=== PATIENT | female | born 1960 | race Caucasian/White ===

== ENCOUNTER 2018-02-24 18:05 | Inpatient (IN) | payer OTHER ==
--- NOTE | 2018-02-24 18:34 | PDOC ---
Rapid Medical Evaluation Chief Complaint: Weakness Time Seen by Provider: 02/24/18 18:28 Medical Evaluation: Allergies Allergy/AdvReac Type Severity Reaction Status Date / Time No Known Allergies Allergy Verified 05/31/12 19:38 Vital Signs Temp Pulse Resp BP Pulse Ox 98.5 F 76 16 152/69 100 02/24/18 18:26 02/24/18 18:26 02/24/18 18:26 02/24/18 18:26 02/24/18 18:26 02/24/18 18:33 I have performed a brief in-person evaluation of this patient. The patient presents with a chief complaint of: h/o diabetes present with complains of 3 days h/o fatigue, weakness and fever. report she had similar symptoms over 2 weeks ago and seen in [facility] ER and dx with URI Pertinent physical exam findings: a&o X 3. NO DISTRESS I have ordered the following: UA, UCX, CBC, CMP The patient will proceed to the ED for further evaluation 02/24/18 18:49 02/24/18 18:50 Discharge Disposition - Diagnosis Malaise - Discharge Dispostion Condition at time of disposition: Stable - Referrals Referrals: Arvind Farooq MD [Primary Care Provider] - - Patient Instructions - Post Discharge Activity
--- NOTE | 2018-02-24 19:45 | PDOC ---
History of Present Illness - General History Source: Patient Exam Limitations: No Limitations - History of Present Illness Initial Comments: 02/24/18 19:39 The patient is a 57F with a PMH of HTN and DM who presents to the ER for weakness. The patient states that she's felt "weak" and "fatigued" for 2.5 weeks. She states that she went to another hospital and diagnosed with a bacterial infection and given antibiotics. Today, as she was on her first day back to work, she states that she felt weak, lightheaded, and near syncopal. She did not syncopize. She called her PCP, Dr. Arvind Farooq, who recommended she comes to the ER for evaluation. She denies CP, SOB, fever, nausea, vomiting, syncope, abdominal pain, dysuria, cough, congestion, sore throat. She admits to feeling weak and chills. <Sunny Hernandez - Last Filed: 02/24/18 21:41> <Julia Vergara - Last Filed: 02/24/18 21:51> - General Chief Complaint: Weakness Stated Complaint: Blood Sugar Problem Time Seen by Provider: 02/24/18 18:28 Past History - Past Medical History COPD: No Diabetes: Yes HTN: Yes - Surgical History Appendectomy: Yes Gastric Stapling: No Neurologic Surgery: No - Immunization History Immunization Up to Date: No - Suicide/Smoking/Psychosocial Hx Smoking Status: Yes Smoking History: Never smoked Have you smoked in the past 12 months: No Number of Cigarettes Smoked Daily: 15 Information on smoking cessation initiated: No 'Breaking Loose' booklet given: 06/01/12 Hx Alcohol Use: No Drug/Substance Use Hx: No Substance Use Type: None Hx Substance Use Treatment: No <Sunny Hernandez - Last Filed: 02/24/18 21:41> <Julia Vergara - Last Filed: 02/24/18 21:51> - Past Medical History Allergies/Adverse Reactions: Allergies Allergy/AdvReac Type Severity Reaction Status Date / Time Sulfa (Sulfonamide Allergy Verified 02/24/18 21:15 Antibiotics) Home Medications: Ambulatory Orders Lisinopril [Prinivil] 40 mg PO DAILY 05/30/12 Lovastatin 20 mg PO DAILY 05/30/12 Omeprazole [Prilosec (RX)] 40 mg PO DAILY 05/30/12 traZODone HCL [Desyrel] 100 mg PO HS 05/30/12 Alprazolam [Xanax] 0.25 mg PO TID 02/24/18 Gemfibrozil 600 mg PO BID 02/24/18 Sitagliptin Phos/Metformin HCl [Janumet 50-500 mg Tablet] 1 each PO BID Venlafaxine HCl ER [Effexor Xr -] 150 mg PO DAILY 02/24/18 Review of Systems - Review of Systems Able to Perform ROS?: Yes Comments:: 02/24/18 19:43 GENERAL/CONSTITUTIONAL: Positive for chills, fatigue, and weakness. No fever. HEAD, EYES, EARS, NOSE AND THROAT: No change in vision. No ear pain or discharge. No sore throat. CARDIOVASCULAR: No chest pain, palpitations, or lightheadedness. RESPIRATORY: No cough, wheezing, shortness of breath, or hemoptysis. GASTROINTESTINAL: No nausea, vomiting, diarrhea, constipation, or abdominal pain. GENITOURINARY: No dysuria, frequency, hematuria, or change in urination. MUSCULOSKELETAL: No joint or muscle swelling or pain. No neck or back pain. SKIN: No rash or lesions. NEUROLOGIC: No headache, numbness, tingling, focal weakness, loss of consciousness, or change in strength/sensation. Is the patient limited Bangladeshi proficient: No <Sunny Hernandez - Last Filed: 02/24/18 21:41> *Physical Exam - Vital Signs Last Vital Signs Temp Pulse Resp BP Pulse Ox 98.5 F 76 16 152/69 100 02/24/18 18:26 02/24/18 18:26 02/24/18 18:26 02/24/18 18:26 02/24/18 18:26 - Physical Exam Comments: 02/24/18 19:43 GENERAL: Well developed, well nourished. Awake and alert. No acute distress. HEENT: Normocephalic, atraumatic. Hearing grossly normal. Moist mucous membranes. PERRLA, EOMI. No conjunctival pallor. Sclera are non-icteric. NECK: Supple. Full ROM. No JVD. CARDIOVASCULAR: Regular rate and rhythm. No murmurs, rubs, or gallops. PULMONARY: No evidence of respiratory distress. Lungs clear to auscultation bilaterally. No wheezing, rales or rhonchi. ABDOMINAL: Soft. Non-tender. Non-distended. No rebound or guarding. GENITOURINARY: No CVA tenderness bilaterally. MUSCULOSKELETAL: Normal range of motion at all joints. No bony deformities or tenderness. EXTREMITIES: No cyanosis. No clubbing. No edema. No calf tenderness or swelling. SKIN: Warm and dry. Normal capillary refill. No rashes. No jaundice. NEUROLOGICAL: Alert, awake, appropriate. Cranial nerves 2-12 grossly intact. Normal speech. Gait is normal without ataxia. PSYCHIATRIC: Cooperative. Good eye contact. Appropriate mood and affect. <Sunny Hernandez - Last Filed: 02/24/18 21:41> - Vital Signs Last Vital Signs Temp Pulse Resp BP Pulse Ox 98.5 F 76 16 152/69 100 02/24/18 18:26 02/24/18 18:26 02/24/18 18:26 02/24/18 18:26 02/24/18 18:26 <Julia Vergara - Last Filed: 02/24/18 21:51> Moderate Sedation - Procedure Monitoring Vital Signs: Procedure Monitoring Vital Signs Temperature 98.5 F 02/24/18 18:26 Pulse Rate 76 02/24/18 18:26 Respiratory Rate 16 02/24/18 18:26 Blood Pressure 152/69 02/24/18 18:26 O2 Sat by Pulse Oximetry (%) 100 02/24/18 18:26 <Sunny Hernandez - Last Filed: 02/24/18 21:41> - Procedure Monitoring Vital Signs: Procedure Monitoring Vital Signs Temperature 98.5 F 02/24/18 18:26 Pulse Rate 76 02/24/18 18:26 Respiratory Rate 16 02/24/18 18:26 Blood Pressure 152/69 02/24/18 18:26 O2 Sat by Pulse Oximetry (%) 100 02/24/18 18:26 <Julia Vergara - Last Filed: 02/24/18 21:51> ED Treatment Course - LABORATORY CBC & Chemistry Diagram: 02/24/18 19:00 02/24/18 19:00 - RADIOLOGY Radiology Studies Ordered: Category Date Time Status CHEST PA & LAT [RAD] Stat Radiology 02/24/18 19:14 Ordered <Sunny Hernandez - Last Filed: 02/24/18 21:41> - LABORATORY CBC & Chemistry Diagram: 02/24/18 19:00 02/24/18 19:00 - ADDITIONAL ORDERS Additional order review: Laboratory Results 02/24/18 02/24/18 02/24/18 20:30 19:00 19:00 Sodium 136 Potassium 3.5 Chloride 105 Carbon Dioxide 21 Anion Gap 10 BUN 16 Creatinine 1.1 Creat Clearance w eGFR 51.57 Random Glucose 128 H Calcium 8.3 L Total Bilirubin 0.4 AST 8 L ALT 12 L Alkaline Phosphatase 80 Total Protein 6.7 Albumin 2.8 L Urine Color Urine Appearance Urine pH Ur Specific [place] Urine Protein Urine Glucose (UA) Urine Ketones Urine Blood Urine Nitrite Urine Bilirubin Urine Urobilinogen Ur Leukocyte Esterase Urine WBC (Auto) Urine RBC (Auto) Ur Epithelial Cells Stool Occult Blood Negative Acetone, Qual Negative L 02/24/18 18:51 Sodium Potassium Chloride Carbon Dioxide Anion Gap BUN Creatinine Creat Clearance w eGFR Random Glucose Calcium Total Bilirubin AST ALT Alkaline Phosphatase Total Protein Albumin Urine Color Yellow Urine Appearance Clear Urine pH 6.0 Ur Specific [place] 1.012 Urine Protein 2+ H Urine Glucose (UA) Negative Urine Ketones Negative Urine Blood 2+ H Urine Nitrite Negative Urine Bilirubin Negative Urine Urobilinogen Negative Ur Leukocyte Esterase 1+ H Urine WBC (Auto) 28 Urine RBC (Auto) 46 Ur Epithelial Cells Rare Stool Occult Blood Acetone, Qual 02/24/18 19:00 RBC 3.37 L MCV 86.2 MCHC 34.8 RDW 13.9 MPV 7.7 Neutrophils % 80.9 Lymphocytes % 8.2 D Monocytes % 9.7 D Eosinophils % 0.7 Basophils % 0.5 D - Medications Given in the ED: ED Medications Discontinued Medications Generic Name Dose Route Start Last Admin Trade Name Freq PRN Reason Stop Dose Admin Acetaminophen 1,000 mg 02/24/18 20:23 02/24/18 20:56 Ofirmev Injection - IVPB 02/24/18 20:24 1,000 mg ONCE ONE Administration Ceftriaxone Sodium 1,000 mg/ 50 mls @ 100 mls/hr 02/24/18 20:59 02/24/18 21: 19 Dextrose IVPB 02/24/18 21:28 100 mls/hr ONCE ONE Administration Sodium Chloride 1,000 ml 02/24/18 20:24 02/24/18 20:56 Normal Saline - IV 02/24/18 20:25 1,000 ml ONCE ONE Administration <Julia Vergara - Last Filed: 02/24/18 21:51> Medical Decision Making - Medical Decision Making 02/24/18 19:44 The patient is a 57F with a PMH of HTN and DM who presents to the ER with 2.5 weeks of weakness and chills. She is not comfortable appearing but has stable vitals. Will order CBC, CMP, EKG, CXR, and UA to look for sources of infection. Pt is afebrile. Pending labs and imaging. 02/24/18 21:03 Rectal temp 102. Giving fluids and tylenol for pt comfort. CBC indicates anemia. Stool occult sent. Concern for symptomatic anemia as pt had near syncopal episode, also in the setting of infection. UA indicates UTI. Giving ceftriaxone. 02/24/18 21:13 Stool occult negative. Microblogged for admission. 02/24/18 21:41 I have endorsed the patient to JONATHAN Vazquez for admission under Dr. Radford. <Sunny Hernandez - Last Filed: 02/24/18 21:41> *DC/Admit/Observation/Transfer - Discharge Dispostion Decision to Admit order: Yes <Sunny Hernandez - Last Filed: 02/24/18 21:41> - Discharge Dispostion Decision to Admit order: Yes Decision to Admit order Date/Time: 02/24/18 21:49 <Julia Vergara - Last Filed: 02/24/18 21:51> Diagnosis at time of Disposition: Malaise, Near syncope, Acute febrile illness UTI (urinary tract infection) Qualifiers: Urinary tract infection type: site unspecified Hematuria presence: with hematuria Qualified Code(s): N39.0 - Urinary tract infection, site not specified ; R31.9 - Hematuria, unspecified Anemia Qualifiers: Anemia type: unspecified type Qualified Code(s): D64.9 - Anemia, unspecified - Discharge Dispostion Condition at time of disposition: Guarded - Referrals Referrals: Arvind Farooq MD [Primary Care Provider] - - Patient Instructions - Post Discharge Activity
[2018-02-24 19:47] LABS: BASO % 0.5 % (0-2.0); EOS % 0.7 % (0-4.5); HEMATOCRIT 29.1 % (32.4-45.2); HEMOGLOBIN 10.1 GM/dL (10.7-15.3); LYMPH % 8.2 % (8-40); MCHC 34.8 g/dl (32.0-36.0); MEAN CELL VOLUME 86.2 fl (80-96); MEAN PLT VOLUME 7.7 fl (7.5-11.1); MONO % 9.7 % (3.8-10.2); NEUT % 80.9 % (42.8-82.8); PLATELET COUNT 313 K/MM3 (134-434); RBC 3.37 M/mm3 (3.60-5.2); RDW 13.9 % (11.6-15.6); WHITE BLOOD COUNT 11.3 K/mm3 (4.0-10.0)
[2018-02-24 20:10] LABS: URINE APPEARANCE CLEAR; URINE BILIRUBIN NEGATIVE (<2.0 mg/dL); URINE COLOR YELLOW; URINE GLUCOSE (UA) NEGATIVE (NEGATIVE); URINE KETONE NEGATIVE (NEGATIVE); URINE LEUK ESTERASE 1+ (NEGATIVE); URINE NITRITE NEGATIVE (NEGATIVE); URINE PROTEIN 2+ (NEGATIVE); URINE UROBILINOGEN NEGATIVE mg/dL (0.2-1.0)
[2018-02-24 20:13] LABS: ALBUMIN 2.8 g/dl (3.4-5.0); ALK PHOS 80 U/L (45-117); ANION GAP 10 MMOL/L (8-16); BILIRUBIN,TOTAL 0.4 mg/dL (0.2-1); BLOOD UREA NITROGEN 16 mg/dL (7-18); CALCIUM 8.3 mg/dL (8.5-10.1); CHLORIDE 105 mmol/L (98-107); CO2 21 mmol/L (21-32); CREATININE 1.1 mg/dL (0.55-1.3); GLUCOSE,RANDOM 128 mg/dL (74-106); POTASSIUM 3.5 mmol/L (3.5-5.1); SGOT/AST 8 U/L (15-37); SGPT/ALT 12 U/L (13-61); SODIUM 136 mmol/L (136-145); TOT PROT 6.7 g/dl (6.4-8.2)
[2018-02-24 20:15] LABS: EPI CELLS RARE /HPF (FEW)
[2018-02-24] MEDS ORDERED: ACETAMINOPHEN 1000 MG/100 ML VIAL (NON FORMULARY) IVPB ONE (20:23)
[2018-02-24] MEDS ORDERED: SODIUM CHLORIDE 0.9% 1000 ML INFUS.BAG IV ONE (20:24)
[2018-02-24] MEDS ORDERED: ACETAMINOPHEN INJECTION 100 ML IVPB ONE (20:48)
[2018-02-24] MEDS ORDERED: CEFTRIAXONE 1,000 MG in DEXTROSE 5%-WATER - 50 ML IVPB ONE (20:59)
--- NOTE | 2018-02-24 21:10 | PDOC ---
Attending Attestation - HPI HPI: 02/24/18 21:10 Patient is a 57 year old female with a significant past medical history of HTN and DM, who presents to the ED with complaints of malaise and generalized weakness and subjective chills that began x2 weeks ago. She reports feeling weak and fatigued for almost 3 weeks, stating she went to [facility] for evaluation earlier this month and was diagnosed with an upper respiratory infection, UTI? - finished course of antibiotics she does not recall. This morning she had episode of near syncope. prompting her to call her PCP Dr Farooq who then advised her to come into the ED for further evaluation. Denies chest pain, sob. Denies nausea, vomiting. Denies contact with sick individuals, out of state travelling. Denies constipation, diarrhea. Denies dysuria, hematuria. Denies any other symptoms. Allergies: None Social history: No smoking. No alcohol. No illicit drugs. Surgical history: None PMD: Dr. Arvind Farooq - Physicial Exam PE: 02/24/18 21:10 NAD, well appearing, MMM, Pale conjunctiva, anicteric; neck supple. lungs clear , RRR, abdomen soft nontender. No gross blood on rectal exam. POOL x4, no focal neuro deficits. No peripheral edema. normal color for ethnicity, WWP. <Brenton Cobos - Last Filed: 02/24/18 21:10> - Resident Resident Name: Sunny Hernandez - ED Attending Attestation I have performed the following: I have examined & evaluated the patient, The case was reviewed & discussed with the resident, I agree w/resident's findings & plan - Medical Decision Making 02/24/18 21:07 I, Julia Vergara MD, attest that this document has been prepared under my direction and personally reviewed by me in its entirety. I further attest, that it accurately reflects all work, treatment, procedures and medical decision -making performed by me. See HPI for details DDx weakness: dehydration, infection, delirium, UTI, pneumonia, viral syndrome, influenza, electrolyte/metabolic derangements, anemia, tick borne illness Vital signs reviewed, wnl. Prior notes reviewed, including admissions, discharges and consultations. laboratory results and imaging reviewed, basic labs and lytes notable for acute anemia, H/H dropped from normal limits down to 01/12. guaic negative for occult blood. last colonoscopy 5 years ago, normal UA_with WBC and leuk esterase, blood, correlating with UTI, treating with IV ceftriaxone CXR_clear, no infiltrate/edema, no acute pathology influenza test negative. acetones neg, so doubt DKA also with normal sugars. lactic normal, reassuring. Cardiac panel_negative EKG normal sinus rhythm, no interval abnormalities, narrow QRS, ST and T wave segments and morphology normal. Nonspecific T wave abnormalities ED course: IVF hydration, abx for UTI. also still FUO, blood cx and lactic sent. peripheral smear for babesia and lyme sent given in endemic region Dispo: Admit for near syncope, anemia and febrile illness and infectious/anemia workup. Discussed results and management plan with pt and family member at bedside, agree with impression and plan 02/25/18 00:01 <Julia Vergara - Last Filed: 02/25/18 00:02>
[2018-02-24] MEDS ORDERED: CEFTRIAXONE 1 GM/50 ML BAG ONE (21:12)
--- NOTE | 2018-02-24 23:09 | HP ---
Admitting History and Physical - Primary Care Physician PCP: Arvind Farooq - Admission Chief Complaint: Pre-Syncope, Weakness History of Present Illness: This is a 57y/o woman with a PMHx of HTN, HLD, DM. Who present to the ED with presyncope and r-arm weakness x today. Patient reports being treated at [facility] for a UTI on 02/05/18. She reports f/u with her PCP - UA neg. Patient reports returning to work today and began feeling like she was about to "pass out". Patient reports having an episode of diaphoresis, decreased appetite as well. Patient denies numbness, tingling, facial droop. Patient denies fever, cough, CP, AP, N/V/D, constipation. History Source: Patient Limitations to Obtaining History: No Limitations - Past Medical History Cardiovascular: Yes: HTN, Hyperlipdemia Renal/: Yes: UTI Reproductive: Yes: Postmenopausal ...LMP: 05/31/12 Psych: Yes: Anxiety - Past Surgical History Past Surgical History: Yes: Appendectomy, Colonoscopy, Hysterectomy - Smoking History Smoking history: Former smoker Have you smoked in the past 12 months: No Aproximately how many cigarettes per day: 15 If you are a former smoker, when did you quit?: 6 years ago - Alcohol/Substance Use Hx Alcohol Use: Yes (occasional) History of Substance Use: reports: None - Social History Usual Living Arrangement: Yes: With Spouse ADL: Independent Occupation: Employed at [employer], tool die maker History of Recent Travel: No Home Medications - Allergies Allergies/Adverse Reactions: Allergies Allergy/AdvReac Type Severity Reaction Status Date / Time Sulfa (Sulfonamide Allergy Verified 02/24/18 21:15 Antibiotics) - Home Medications Home Medications: Ambulatory Orders Lisinopril [Prinivil] 40 mg PO DAILY 05/30/12 Lovastatin 20 mg PO DAILY 05/30/12 Omeprazole [Prilosec (RX)] 40 mg PO DAILY 05/30/12 traZODone HCL [Desyrel] 100 mg PO HS 05/30/12 Alprazolam [Xanax] 0.25 mg PO TID 02/24/18 Gemfibrozil 600 mg PO BID 02/24/18 Venlafaxine HCl ER [Effexor Xr -] 150 mg PO DAILY 12/11/18 Sitagliptin Phos/Metformin HCl [Janumet 50-500 mg Tablet] 1 each PO BID Family Disease History - Family Disease History Family Disease History: Diabetes: Father (Lung, ), Heart Disease: Mother (HTN), CA: Father, Respiratory: Brother (PE, age- 50's) Review of Systems - Review of Systems Constitutional: reports: Diaphoresis, Fever, Loss of Appetite, Weakness Eyes: reports: No Symptoms HENT: reports: No Symptoms Neck: reports: No Symptoms Cardiovascular: reports: No Symptoms Respiratory: reports: No Symptoms Gastrointestinal: reports: No Symptoms Genitourinary: reports: Dysuria Breasts: reports: No Symptoms Reported Musculoskeletal: reports: No Symptoms Integumentary: reports: No Symptoms Neurological: reports: No Symptoms Endocrine: reports: No Symptoms Hematology/Lymphatic: reports: No Symptoms Psychiatric: reports: No Symptoms Physical Examination Vital Signs: Vital Signs Temperature 102 F H 02/24/18 20:00 Pulse Rate 76 02/24/18 18:26 Respiratory Rate 16 02/24/18 18:26 Blood Pressure 152/69 02/24/18 18:26 O2 Sat by Pulse Oximetry (%) 100 02/24/18 18:26 Constitutional: Yes: Well Nourished, No Distress, Calm, Pallor Eyes: Yes: WNL, Conjunctiva Clear (pale), EOM Intact, PERRL HENT: Yes: WNL, Atraumatic, Normocephalic Neck: Yes: WNL, Supple, Trachea Midline Cardiovascular: Yes: WNL, Regular Rate and Rhythm, S1, S2 Respiratory: Yes: WNL, Regular, CTA Bilaterally Gastrointestinal: Yes: WNL, Normal Bowel Sounds, Soft, Abdomen, Obese. No: Tenderness, Tenderness, Epigastrium, Tenderness, Rebound ...Rectal Exam: Yes: Guaiac Negative Renal/: Yes: Incontinence Breast(s): Yes: WNL Musculoskeletal: Yes: Back Pain Extremities: Yes: WNL Edema: No Peripheral Pulses WNL: Yes Integumentary: Yes: WNL Neurological: Yes: WNL, Alert, Oriented, Cran Nerves II-XII Intact ...Motor Strength: WNL Psychiatric: Yes: WNL, Alert Labs: CBC, BMP 02/24/18 19:00 02/24/18 19:00 Intake & Output 02/22/18 02/23/18 02/24/18 02/25/18 23:59 23:59 23:59 23:59 Weight 78.471 kg Current Medications Generic Name Dose Route Start Last Admin Trade Name Lili PRN Reason Stop Dose Admin Atorvastatin Calcium 10 mg 02/25/18 22:00 Lipitor - PO HS SOFÍA Gemfibrozil 600 mg 02/24/18 23:15 Lopid - PO BIDAC SOFÍA Lisinopril 40 mg 02/25/18 10:00 Prinivil PO DAILY SOFÍA Pantoprazole Sodium 40 mg 02/25/18 10:00 Protonix - PO DAILY SOFÍA Trazodone HCl 100 mg 02/24/18 23:30 Desyrel - PO HS SOFÍA Venlafaxine HCl 150 mg 02/25/18 10:00 Effexor Xr - PO DAILY SOFÍA Imaging - Results X-ray: Image Reviewed Problem List - Problems (1) Near syncope Assessment/Plan: Likely secondary to Arrhythmia vs UTI Continue cardiac monitoring Serial Enzymes EKG reviewed- SR with 1st degree AV block. Septal Infarct age undetermined Appreciate Cardiology consult Ceftriaxone given in ED, will continue UA- reviewed Fall Precautions Orthostatics Code(s): R55 - SYNCOPE AND COLLAPSE (2) UTI (urinary tract infection) Assessment/Plan: UA- +2 protein, +1 leukocyte esterase, +2 blood Urine Culture- pending Ceftriaxone given in ED, will continue WBC 28 +1 leukocyte esterase +2 protein +2 blood Monitor CBC Monitor vitals Code(s): N39.0 - URINARY TRACT INFECTION, SITE NOT SPECIFIED Qualifiers: Urinary tract infection type: site unspecified Hematuria presence: with hematuria Qualified Code(s): N39.0 - Urinary tract infection, site not specified; R31.9 - Hematuria, unspecified (3) HTN (hypertension) Assessment/Plan: stable Monitor BP Continue home meds Monitor renal function Code(s): I10 - ESSENTIAL (PRIMARY) HYPERTENSION (4) HLD (hyperlipidemia) Assessment/Plan: Stable Continue statin Monitor LFTs Code(s): E78.5 - HYPERLIPIDEMIA, UNSPECIFIED (5) Diabetes mellitus Assessment/Plan: stable BGMs ISS Will hold home meds Code(s): E11.9 - TYPE 2 DIABETES MELLITUS WITHOUT COMPLICATIONS Qualifiers: Diabetes mellitus type: type 2 Diabetes mellitus complication status: without complication (6) Malaise Assessment/Plan: Likely secondary to UTI Continue IVF Monitor BMP Vitals Code(s): R53.81 - OTHER MALAISE Assessment/Plan This is a 57 y/o woman placed in Tele Observation for Near Syncope, UTI for further evaluation of their emergent condition. Plan: FEN PO Fluids as tolerated Replete lytes prn Low Na Diet DVT ppx OOB SCDs Lovenox SQ Dispo: Requires Inpatient Care Visit type - Emergency Visit Emergency Visit: Yes ED Registration Date: 02/24/18 Care time: The patient presented to the Emergency Department on the above date and was hospitalized for further evaluation of their emergent condition. - New Patient This patient is new to me today: Yes Date on this admission: 02/24/18 - Critical Care Critical Care patient: No
[2018-02-25] MEDS: traZODone HCL 100 MG TABLET (FP) PO SCH ×2 (00:10→21:16)
[2018-02-25] MEDS: GEMFIBROZIL 600 MG TABLET (FP) PO SCH ×3 (00:10→17:47)
[2018-02-25 05:46] LABS: BASO % 0.4 % (0-2.0); EOS % 1.5 % (0-4.5); HEMATOCRIT 28.6 % (32.4-45.2); HEMOGLOBIN 9.5 GM/dL (10.7-15.3); LYMPH % 12.3 % (8-40); MCH 28.7 pg (25.7-33.7); MCHC 33.2 g/dl (32.0-36.0); MEAN CELL VOLUME 86.6 fl (80-96); MEAN PLT VOLUME 7.4 fl (7.5-11.1); MONO % 10.3 % (3.8-10.2); NEUT % 75.5 % (42.8-82.8); PLATELET COUNT 260 K/MM3 (134-434); RDW 13.9 % (11.6-15.6)
[2018-02-25 06:18] LABS: ANION GAP 9 MMOL/L (8-16); BLOOD UREA NITROGEN 14 mg/dL (7-18); CALCIUM 7.9 mg/dL (8.5-10.1); CHLORIDE 112 mmol/L (98-107); CHOLESTEROL 118 mg/dL (50-200); CO2 21 mmol/L (21-32); CREATININE 0.8 mg/dL (0.55-1.3); GLUCOSE,RANDOM 128 mg/dL (74-106); HDL CHOLESTEROL 30 mg/dL (40-60); MAGNESIUM 1.2 mg/dL (1.8-2.4); PHOSPHOROUS 2.2 mg/dL (2.5-4.9); POTASSIUM 3.7 mmol/L (3.5-5.1); SODIUM 142 mmol/L (136-145); TRIGLYCERIDES 119 mg/dL (0-150)
[2018-02-25] MEDS ORDERED: PT OWN MED DRAWER 7, Y5N ONE (08:41)
--- NOTE | 2018-02-25 09:51 | EKG ---
Test Reason : Blood Pressure : / mmHG Vent. Rate : 078 BPM Atrial Rate : 078 BPM P-R Int : 272 ms QRS Dur : 088 ms QT Int : 358 ms P-R-T Axes : 050 000 054 degrees QTc Int : 408 ms SINUS RHYTHM WITH 1ST DEGREE A-V BLOCK POSSIBLE LEFT ATRIAL ENLARGEMENT SEPTAL INFARCT , AGE UNDETERMINED ABNORMAL ECG WHEN COMPARED WITH ECG OF 01-JUN-2012 01:42, NO SIGNIFICANT CHANGE WAS FOUND Confirmed by MARIA E NGUYEN MD ([id number]) on 02/25/2018 9:50:42 AM Referred By: Confirmed By:MARIA E NGUYEN MD
[2018-02-25] MEDS: VENLAFAXINE HCL 75 MG E.R. CAPSULES (FP) PO SCH (10:03)
[2018-02-25] MEDS: PANTOPRAZOLE 40 MG TABLET (FP) PO SCH (10:03)
[2018-02-25] MEDS: LISINOPRIL 20 MG TABLET (FP) PO SCH (10:03)
--- NOTE | 2018-02-25 10:43 | PN ---
Progress Note, Physician - Current Medication List Current Medications: Active Medications Atorvastatin Calcium (Lipitor -) 10 mg PO [facility] Gemfibrozil (Lopid -) 600 mg PO BIDAC [facility] Last Admin: 02/25/18 08:47 Dose: 600 mg Lisinopril (Prinivil) 40 mg PO DAILY [facility] Last Admin: 02/25/18 10:03 Dose: 40 mg Pantoprazole Sodium (Protonix -) 40 mg PO DAILY [facility] Last Admin: 02/25/18 10:03 Dose: 40 mg Trazodone HCl (Desyrel -) 100 mg PO HS [facility] Last Admin: 02/25/18 00:10 Dose: 100 mg Venlafaxine HCl (Effexor Xr -) 150 mg PO DAILY [facility] Last Admin: 02/25/18 10:03 Dose: 150 mg - Objective Vital Signs: Vital Signs Temperature 98.6 F 02/25/18 08:55 Pulse Rate 68 02/25/18 08:55 Respiratory Rate 20 02/25/18 08:55 Blood Pressure 161/78 02/25/18 08:55 O2 Sat by Pulse Oximetry (%) 100 02/25/18 08:55 Labs: CBC, BMP 02/25/18 05:20 02/25/18 05:20
[2018-02-25] MEDS ORDERED: MAGNESIUM 1GM/D5W - 2 GM/200 ML IVPB IVPB ONE (10:53)
[2018-02-25] MEDS ORDERED: PATIENT'S OWN MEDICATION (NON-FORMULARY) (Sitagliptin Phos/Metformin Hcl [Janumet 50-500 M PO SCH (11:15)
[2018-02-25] MEDS: metFORMIN HCL 500 MG TABLET (FP) PO SCH ×2 (11:28→17:29)
[2018-02-25] MEDS: sitaGLIPtin PHOSPHATE 50 MG TABLET PO SCH ×2 (11:28→17:29)
[2018-02-25] MEDS ORDERED: MAGNESIUM SULF 50% (8.12 MEQ/2 ML-1 GM VIAL) IVPB ONE (11:30)
[2018-02-25] MEDS ORDERED: ALPRAZolam 0.25 MG TABLET ONE (11:31)
[2018-02-25] MEDS: ALPRAZolam 0.25 MG TABLET PO PRN ×2 (11:35→21:14)
--- NOTE | 2018-02-25 14:22 | ECHO ---
Name: VERNONSABINO Exam:Adult Echocardiogram Study Date: 02/25/2018 11:38 AM Age: 57 yrs Reason For Study: PRE SYNCOPE Height: 67 in Weight: 173 lb BSA: 1.9 m2 MMode/2D Measurements & Calculations IVSd: 0.89 cm Ao root diam: 2.9 cm LVIDd: 4.7 cm LA dimension: 4.8 cm LVIDs: 3.4 cm LVPWd: 0.88 cm EDV(Teich): 104.3 ml TAPSE: 2.3 cm ESV(Teich): 48.5 ml Doppler Measurements & Calculations Ao V2 max: 143.6 cm/sec LV V1 max P.2 mmHg Ao max P.2 mmHg LV V1 max: 102.7 cm/sec MR max shelton: 550.8 cm/sec TR max shelton: 260.4 cm/sec MR max P.9 mmHg TR max P.2 mmHg PI end-d shelton: 165.2 cm/sec Med Peak E' Shelton: 5.5 cm/sec Lat Peak E' Shelton: 9.7 cm/sec Procedure A two-dimensional transthoracic echocardiogram with color flow and Doppler was performed. Left Ventricle The left ventricular size, thickness and function are normal. The left ventricular ejection fraction is normal. The left ventricular wall motion is normal. Right Ventricle The right ventricle is normal in size and function. Atria The left atrium is moderately dilated. The right atrium is moderately dilated. The atrial septum is aneurysmal. Mitral Valve There is mild mitral valve thickening. There is no mitral valve stenosis. There is moderate to severe mitral regurgitation. Tricuspid Valve There is mild tricuspid valve thickening. There is no tricuspid stenosis. There is mild to moderate t ricuspid regurgitation. Right ventricular systolic pressure is elevated at 30-40mmHg. Aortic Valve The aortic valve is normal in structure and function. No hemodynamically significant valvular aortic stenosis. No aortic regurgitation is present. Pulmonic Valve The pulmonic valve is not well visualized. There is no pulmonic valvular stenosis. Mild pulmonic valv ular regurgitation. Great Vessels The aortic root is normal size. Pericardium/Pleura There is no pericardial effusion. Interpretation Summary The left atrium is moderately dilated. The right atrium is moderately dilated. The left ventricular size, thickness and function are normal The left ventricular ejection fraction is normal. The left ventricular wall motion is normal. There is mild to moderate tricuspid regurgitation. Right ventricular systolic pressure is elevated at 30-40mmHg. There is moderate to severe mitral regurgitation. The atrial septum is aneurysmal. MD Cosme Morales 02/25/2018 02:22 PM
[2018-02-25] MEDS: INSULIN SLIDING SCALE (NOVOLOG) 1 VIAL SQ SCH (17:29)
[2018-02-25] MEDS ORDERED: INSULIN (NOVOLOG) ASPART 100 UNITS/ML 10ML VIAL ONE (17:48)
[2018-02-25] MEDS ORDERED: traZODone HCL 50 MG TABLET (FP) ONE (21:12)
[2018-02-25] MEDS: ATORVASTATIN CA 10 MG TABLET (FP) PO SCH (21:14)
[2018-02-26] MEDS: metFORMIN HCL 500 MG TABLET (FP) PO SCH ×2 (06:47→16:31)
[2018-02-26] MEDS: sitaGLIPtin PHOSPHATE 50 MG TABLET PO SCH ×2 (06:47→16:31)
[2018-02-26] MEDS: INSULIN SLIDING SCALE (NOVOLOG) 1 VIAL SQ SCH ×3 (06:48→16:35)
[2018-02-26] MEDS: GEMFIBROZIL 600 MG TABLET (FP) PO SCH ×2 (08:40→16:31)
--- NOTE | 2018-02-26 09:16 | CON.CARD ---
Consult Consult Specialty:: Cardiology Referred by:: Dr. Rachid Farooq Reason for Consultation:: Pre Syncope - History of Present Illness Chief Complaint: Weakness History of Present Illness: 57F PMH HTN, GERD, anxiety and depression developed a UTI shortly after Thanksgiving. Was treated with outpatient course of Abx. Since then has felt generalized fatigue and weakness, intermittent chills. Yesterday had a presyncopal episode. Denies antecedent CP SOB, palpitations, edema. Denies prior cardiac history. Usual exercise capacity is unlimited. - History Source History Provided By: Patient, Medical Record - Past Medical History Cardio/Vascular: Yes: HTN, Hyperlipdemia Gastrointestinal: Yes: GERD Renal/: Yes: UTI ...LMP: 05/31/12 ...: No Psych: Yes: Anxiety - Past Surgical History Past Surgical History: Yes: Appendectomy, Colonoscopy, Hysterectomy - Alcohol/Substance Use Hx Alcohol Use: Yes (occasional) History of Substance Use: reports: None - Smoking History Smoking history: Former smoker Have you smoked in the past 12 months: No Aproximately how many cigarettes per day: 15 If you are a former smoker, when did you quit?: 5 years ago - Social History ADL: Independent Occupation: Employed at [employer]- [employer] History of Recent Travel: No Home Medications - Allergies Allergies/Adverse Reactions: Allergies Allergy/AdvReac Type Severity Reaction Status Date / Time Sulfa (Sulfonamide Allergy Verified 02/24/18 21:15 Antibiotics) - Home Medications Home Medications: Ambulatory Orders Lisinopril [Prinivil] 40 mg PO DAILY 05/30/12 Lovastatin 20 mg PO DAILY 05/30/12 Omeprazole [Prilosec (RX)] 40 mg PO DAILY 05/30/12 traZODone HCL [Desyrel] 100 mg PO HS 05/30/12 Alprazolam [Xanax] 0.25 mg PO TID 02/24/18 Gemfibrozil 600 mg PO BID 02/24/18 Venlafaxine HCl ER [Effexor Xr -] 150 mg PO DAILY 02/24/18 Sitagliptin Phos/Metformin HCl [Janumet 50-500 mg Tablet] 1 each PO BID Family Disease History - Family Disease History Family Disease History: Diabetes: Father (Lung, ), Heart Disease: Mother (HTN), CA: Father, Respiratory: Brother (PE, age- 50's) Review of Systems Findings/Remarks: The patient is a 57F with a PMH of HTN and DM who presents to the ER for weakness. The patient states that she's felt "weak" and "fatigued" for 2.5 weeks. She states that she went to another hospital and diagnosed with a bacterial infection and given antibiotics. Today, as she was on her first day back to work, she states that she felt weak, lightheaded, and near syncopal. She did not syncopize. She called her PCP, Dr. Arvind Farooq, who recommended she comes to the ER for evaluation. She denies CP, SOB, fever, nausea, vomiting, syncope, abdominal pain, dysuria, cough, congestion, sore throat. She admits to feeling weak and chills. - Review of Systems Constitutional: reports: Chills, Weakness Cardiovascular: reports: No Symptoms Respiratory: reports: No Symptoms Gastrointestinal: reports: No Symptoms Genitourinary: reports: No Symptoms Breasts: reports: No Symptoms Reported Musculoskeletal: reports: No Symptoms Integumentary: reports: No Symptoms Neurological: reports: No Symptoms Endocrine: reports: No Symptoms Hematology/Lymphatic: reports: No Symptoms Psychiatric: reports: No Symptoms - Risk Factors Known Risk Factors: Yes: Hypercholesterolemia, Hypertension Vital Signs: Vital Signs Temperature 98.1 F 02/26/18 08:53 Pulse Rate 69 02/26/18 08:53 Respiratory Rate 18 02/26/18 08:53 Blood Pressure 164/80 02/26/18 08:53 O2 Sat by Pulse Oximetry (%) 99 02/25/18 21:00 Constitutional: Yes: No Distress, Calm Eyes: Yes: Conjunctiva Clear, EOM Intact HENT: Yes: Atraumatic, Normocephalic Neck: Yes: Supple, Trachea Midline Respiratory: Yes: CTA Bilaterally (no rales or wheezing.) Gastrointestinal: Yes: Soft (Nontender) Cardiovascular: Yes: Regular Rate and Rhythm (RRR) JVD: No Carotid Bruit: No PMI: Non-Displaced Heart Sounds: Yes: S1, S2 (RRR, soft systolic murmur at apex) Edema: No Neurological: Yes: Alert, Oriented ...Motor Strength: WNL Psychiatric: Yes: WNL - Other Data Labs, Other Data: CBC, BMP 02/25/18 05:20 02/25/18 05:20 Microbiology 02/24/18 18:51 Urine - Urine Clean Catch Urine Culture - Final NO GROWTH OBTAINED 02/24/18 20:30 Blood - Peripheral Venous Blood Culture - Preliminary NO GROWTH OBTAINED AFTER 24 HOURS, INCUBATION TO CONTINUE FOR 4 DAYS. 02/24/18 20:30 Blood - Peripheral Venous Blood Culture - Preliminary NO GROWTH OBTAINED AFTER 24 HOURS, INCUBATION TO CONTINUE FOR 4 DAYS. Laboratory Tests 02/24/18 02/24/18 18:30 19:00 Acetone, Qual Negative L Influenza A (Rapid) Negative Influenza B (Rapid) Negative nsr 78 bpm, 1st degree avb, cannot r/o old septal FL vs lead position Echo: Image Reviewed (I personally reviewed the echo this morning. Mitral regurg is present but is mild to moderate in degree.) Ejection Fraction %: LVEF > or = 40 % Imaging - Results Chest X-ray: Report Reviewed, Image Reviewed EKG: Image Reviewed Problem List - Problems (1) Near syncope Code(s): R55 - SYNCOPE AND COLLAPSE (2) Abnormal ECG Code(s): R94.31 - ABNORMAL ELECTROCARDIOGRAM [ECG] [EKG] (3) Mitral regurgitation Code(s): I34.0 - NONRHEUMATIC MITRAL (VALVE) INSUFFICIENCY Qualifiers: Cardiac valve disease etiology: nonrheumatic Qualified Code(s): I34.0 - Nonrheumatic mitral (valve) insufficiency (4) Acute febrile illness Code(s): R50.9 - FEVER, UNSPECIFIED (5) Anemia Code(s): D64.9 - ANEMIA, UNSPECIFIED Qualifiers: Anemia type: unspecified type Qualified Code(s): D64.9 - Anemia, unspecified (6) Diabetes mellitus Code(s): E11.9 - TYPE 2 DIABETES MELLITUS WITHOUT COMPLICATIONS Qualifiers: Diabetes mellitus type: type 2 Diabetes mellitus complication status: without complication (7) UTI (urinary tract infection) Code(s): N39.0 - URINARY TRACT INFECTION, SITE NOT SPECIFIED Qualifiers: Urinary tract infection type: site unspecified Hematuria presence: with hematuria Qualified Code(s): N39.0 - Urinary tract infection, site not specified; R31.9 - Hematuria, unspecified Assessment/Plan IMP: Fever, malaise recent UTI and Anemia with Presyncope in this setting. DM HTN Abnl ECst degree AV block Mild to moderate MR REC: 1. Work up fever as per PMD: cultures pending 2. Continue tele x 24 hours- obtain old ECG if possible 3. Echo personally reviewed- MR is mild to moderate. Can be followed serially. Obtain old echo report if possible. 4. BP trend reveals average BP is above goal of 140/90, will add amlodipine. Avoid AV mallory agents.
[2018-02-26] MEDS ORDERED: PT OWN MED DRAWER 7, Y5N ONE ×3 (09:59→13:36)
[2018-02-26] MEDS: LISINOPRIL 20 MG TABLET (FP) PO SCH (10:05)
[2018-02-26] MEDS: PANTOPRAZOLE 40 MG TABLET (FP) PO SCH (10:05)
[2018-02-26] MEDS: VENLAFAXINE HCL 75 MG E.R. CAPSULES (FP) PO SCH (10:06)
[2018-02-26] MEDS ORDERED: amLODIPine BESYLATE 2.5 MG TABLET (FP) PO SCH (10:15)
[2018-02-26 10:47] LABS: ANION GAP 9 MMOL/L (8-16); BLOOD UREA NITROGEN 15 mg/dL (7-18); CALCIUM 9.2 mg/dL (8.5-10.1); CHLORIDE 109 mmol/L (98-107); CO2 22 mmol/L (21-32); CREATININE 0.9 mg/dL (0.55-1.3); GLUCOSE,RANDOM 201 mg/dL (74-106); MAGNESIUM 1.7 mg/dL (1.8-2.4); POTASSIUM 4.6 mmol/L (3.5-5.1); SODIUM 140 mmol/L (136-145)
--- NOTE | 2018-02-26 12:44 | PN ---
Progress Note (short form) - Note Progress Note: no distress Feels well no dizziness No unsteady gait Vital Signs - 24 hr 02/25/18 02/25/18 02/25/18 14:39 17:32 18:15 Temperature 97.8 F 98.2 F 97.7 F Pulse Rate 73 Pulse Rate [ 72 83 Apical] Respiratory 16 16 18 Rate Blood Pressure 140/64 Blood Pressure 129/61 127/71 [Right] O2 Sat by Pulse 98 98 Oximetry (%) 02/25/18 02/25/18 02/26/18 18:37 21:00 01:46 Temperature 97.7 F 97.9 F Pulse Rate 73 71 Pulse Rate [ Apical] Respiratory 18 18 Rate Blood Pressure 146/68 179/85 H Blood Pressure [Right] O2 Sat by Pulse 96 99 Oximetry (%) 02/26/18 02/26/18 02/26/18 05:00 08:53 09:00 Temperature 98.3 F 98.1 F Pulse Rate 70 69 Pulse Rate [ Apical] Respiratory 18 18 Rate Blood Pressure 158/74 164/80 Blood Pressure [Right] O2 Sat by Pulse 99 Oximetry (%) Current Medications Generic Name Dose Route Start Last Admin Trade Name Freq PRN Reason Stop Dose Admin Alprazolam 0.25 mg 02/25/18 11:01 02/25/18 21:14 Xanax - PO 0.25 mg TID PRN Administration ANXIETY Amlodipine Besylate 2.5 mg 02/26/18 10:15 02/26/18 10:19 Norvasc - PO 2.5 mg DAILY SOFÍA Administration Atorvastatin Calcium 10 mg 02/25/18 22:00 02/25/18 21:14 Lipitor - PO 10 mg HS SOFÍA Administration Gemfibrozil 600 mg 02/24/18 23:15 02/26/18 08:40 Lopid - PO 600 mg BIDAC SOFÍA Administration Magnesium Sulfate/Dextrose 2 200 mls @ 100 mls/hr 02/26/18 12:32 gm/ Miscellaneous IVPB 02/26/18 14:31 ONCE ONE Insulin Aspart 1 vial 02/25/18 16:30 02/26/18 11:22 Novolog Vial Sliding Scale - SQ 2 unit TIDAC SOFÍA Administration Protocol Lisinopril 40 mg 02/25/18 10:00 02/26/18 10:05 Prinivil PO 40 mg DAILY SOFÍA Administration Metformin HCl 500 mg 02/25/18 11:30 02/26/18 06:47 Glucophage - PO 500 mg BID@0700,1630 SOFÍA Administration Pantoprazole Sodium 40 mg 02/25/18 10:00 02/26/18 10:05 Protonix - PO 40 mg DAILY SOFÍA Administration Potassium Phos/Sodium Phos 1 packet 02/26/18 12:35 Phos-Nak Packet - PO 02/26/18 12:36 ONCE ONE Sitagliptin Phosphate 50 mg 02/25/18 11:30 02/26/18 06:47 Januvia - PO 50 mg BID@0700,1630 SOFÍA Administration Trazodone HCl 100 mg 02/24/18 23:30 02/25/18 21:16 Desyrel - PO 100 mg HS SOFÍA Administration Venlafaxine HCl 150 mg 02/25/18 10:00 02/26/18 10:06 Effexor Xr - PO 150 mg DAILY SOFÍA Administration Laboratory Results - last 24 hr 02/25/18 02/26/18 02/26/18 17:28 06:00 09:40 Sodium 140 Potassium 4.6 Chloride 109 H Carbon Dioxide 22 Anion Gap 9 BUN 15 Creatinine 0.9 Creat Clearance w eGFR > 60 POC Glucometer [id number] 174 Random Glucose 201 H Calcium 9.2 Magnesium 1.7 L 02/26/18 11:20 Sodium Potassium Chloride Carbon Dioxide Anion Gap BUN Creatinine Creat Clearance w eGFR POC Glucometer 166 Random Glucose Calcium Magnesium S1 S2 RRR Lungs clear Abd- soft, NT No edema PLAN Echo noted Cardiology eval appreciated Replace Magnesium, phosphorus IV antibiotics anticipate dc in AM after antibiotics Problem List - Problems (1) Abnormal ECG Code(s): R94.31 - ABNORMAL ELECTROCARDIOGRAM [ECG] [EKG] (2) Acute febrile illness Code(s): R50.9 - FEVER, UNSPECIFIED (3) Anemia Code(s): D64.9 - ANEMIA, UNSPECIFIED Qualifiers: Anemia type: unspecified type Qualified Code(s): D64.9 - Anemia, unspecified (4) Diabetes mellitus Code(s): E11.9 - TYPE 2 DIABETES MELLITUS WITHOUT COMPLICATIONS Qualifiers: Diabetes mellitus type: type 2 Diabetes mellitus complication status: without complication (5) HLD (hyperlipidemia) Code(s): E78.5 - HYPERLIPIDEMIA, UNSPECIFIED
[2018-02-26] MEDS ORDERED: NAPH,MB-DB/K PH,MBDB POWDER PACKET PO ONE (13:45)
[2018-02-26] MEDS ORDERED: MAGNESIUM SULFATE IN WATER 2 GM/50 ML IVPB IVPB ONE (13:45)
[2018-02-26] MEDS ORDERED: MAGNESIUM SULF 50% (8.12 MEQ/2 ML-1 GM VIAL) IVPB ONE (14:45)
[2018-02-26] MEDS: ENOXAPARIN NA (PORCINE) 40 MG/0.4 ML DISP.SYRIN SQ SCH (14:47)
[2018-02-26 19:21] VITALS: BMI 26.7
[2018-02-26] MEDS ORDERED: traZODone HCL 50 MG TABLET (FP) ONE (21:03)
[2018-02-26] MEDS: ATORVASTATIN CA 10 MG TABLET (FP) PO SCH (21:07)
[2018-02-26] MEDS: traZODone HCL 100 MG TABLET (FP) PO SCH (21:08)
[2018-02-26] MEDS: ALPRAZolam 0.25 MG TABLET PO PRN (21:09)
[2018-02-27] MEDS ORDERED: PT OWN MED DRAWER 7, Y5N ONE ×2 (06:07→17:47)
[2018-02-27 06:24] LABS: HEMATOCRIT 32.7 % (32.4-45.2); HEMOGLOBIN 10.6 GM/dL (10.7-15.3); MCH 28.2 pg (25.7-33.7); MCHC 32.5 g/dl (32.0-36.0); MEAN CELL VOLUME 86.8 fl (80-96); PLATELET COUNT 333 K/MM3 (134-434); RBC 3.77 M/mm3 (3.60-5.2); RDW 14.2 % (11.6-15.6); WHITE BLOOD COUNT 6.8 K/mm3 (4.0-10.0)
[2018-02-27] MEDS: metFORMIN HCL 500 MG TABLET (FP) PO SCH ×2 (06:35→17:10)
[2018-02-27] MEDS: GEMFIBROZIL 600 MG TABLET (FP) PO SCH ×2 (06:36→17:11)
[2018-02-27] MEDS: sitaGLIPtin PHOSPHATE 50 MG TABLET PO SCH ×2 (06:36→17:10)
[2018-02-27] MEDS: INSULIN SLIDING SCALE (NOVOLOG) 1 VIAL SQ SCH ×3 (06:36→17:10)
[2018-02-27 07:05] LABS: ALBUMIN 2.8 g/dl (3.4-5.0); ALK PHOS 85 U/L (45-117); ANION GAP 7 MMOL/L (8-16); BILIRUBIN,TOTAL 0.3 mg/dL (0.2-1); BLOOD UREA NITROGEN 15 mg/dL (7-18); CALCIUM 9.6 mg/dL (8.5-10.1); CHLORIDE 108 mmol/L (98-107); CO2 27 mmol/L (21-32); CREATININE 0.9 mg/dL (0.55-1.3); GLUCOSE,RANDOM 161 mg/dL (74-106); MAGNESIUM 1.7 mg/dL (1.8-2.4); PHOSPHOROUS 4.1 mg/dL (2.5-4.9); POTASSIUM 4.9 mmol/L (3.5-5.1); SGOT/AST 8 U/L (15-37); SGPT/ALT 15 U/L (13-61); SODIUM 142 mmol/L (136-145); TOT PROT 6.8 g/dl (6.4-8.2)
--- NOTE | 2018-02-27 08:59 | PN ---
Progress Note, Physician Chief Complaint: Blood cx remain negative TELE: reviewed---> NSR, 1st degree AV block. Episodes of Wenkebach. Rare PVCs. History of Present Illness: BP remains slightly above goal. - Current Medication List Current Medications: Active Medications Alprazolam (Xanax -) 0.25 mg PO TID PRN PRN Reason: ANXIETY Last Admin: 02/26/18 21:09 Dose: 0.25 mg Amlodipine Besylate (Norvasc -) 2.5 mg PO DAILY [facility] Last Admin: 02/26/18 10:19 Dose: 2.5 mg Atorvastatin Calcium (Lipitor -) 10 mg PO HS [facility] Last Admin: 02/26/18 21:07 Dose: 10 mg Enoxaparin Sodium (Lovenox -) 40 mg SQ DAILY [facility] Last Admin: 02/26/18 14:47 Dose: 40 mg Gemfibrozil (Lopid -) 600 mg PO BIDAC [facility] Last Admin: 02/27/18 06:36 Dose: 600 mg Insulin Aspart (Novolog Vial Sliding Scale -) 1 vial SQ TIDAC [facility]; Protocol Last Admin: 02/27/18 06:36 Dose: 2 unit Lisinopril (Prinivil) 40 mg PO DAILY [facility] Last Admin: 02/26/18 10:05 Dose: 40 mg Metformin HCl (Glucophage -) 500 mg PO BID@0700,1630 [facility] Last Admin: 02/27/18 06:35 Dose: 500 mg Pantoprazole Sodium (Protonix -) 40 mg PO DAILY [facility] Last Admin: 02/26/18 10:05 Dose: 40 mg Sitagliptin Phosphate (Januvia -) 50 mg PO BID@0700,1630 [facility] Last Admin: 02/27/18 06:36 Dose: 50 mg Trazodone HCl (Desyrel -) 100 mg PO HS [facility] Last Admin: 02/26/18 21:08 Dose: 100 mg Venlafaxine HCl (Effexor Xr -) 150 mg PO DAILY [facility] Last Admin: 02/26/18 10:06 Dose: 150 mg - Objective Vital Signs: Vital Signs Temperature 98.0 F 02/27/18 08:36 Pulse Rate 63 02/27/18 08:36 Respiratory Rate 15 02/27/18 08:37 Blood Pressure 156/79 02/27/18 08:36 O2 Sat by Pulse Oximetry (%) 98 02/27/18 08:37 Constitutional: Yes: No Distress Cardiovascular: Yes: Regular Rate and Rhythm Respiratory: Yes: CTA Bilaterally Gastrointestinal: Yes: Soft Edema: No Neurological: Yes: Alert, Oriented Psychiatric: Yes: WNL Labs: CBC, BMP 02/27/18 05:30 02/27/18 06:00 - ....Imaging EKG: Image Reviewed Problem List - Problems (1) Near syncope Code(s): R55 - SYNCOPE AND COLLAPSE (2) Abnormal ECG Code(s): R94.31 - ABNORMAL ELECTROCARDIOGRAM [ECG] [EKG] (3) Mitral regurgitation Code(s): I34.0 - NONRHEUMATIC MITRAL (VALVE) INSUFFICIENCY Qualifiers: Cardiac valve disease etiology: nonrheumatic Qualified Code(s): I34.0 - Nonrheumatic mitral (valve) insufficiency (4) Acute febrile illness Code(s): R50.9 - FEVER, UNSPECIFIED (5) Anemia Code(s): D64.9 - ANEMIA, UNSPECIFIED Qualifiers: Anemia type: unspecified type Qualified Code(s): D64.9 - Anemia, unspecified (6) Diabetes mellitus Code(s): E11.9 - TYPE 2 DIABETES MELLITUS WITHOUT COMPLICATIONS Qualifiers: Diabetes mellitus type: type 2 Diabetes mellitus complication status: without complication (7) UTI (urinary tract infection) Code(s): N39.0 - URINARY TRACT INFECTION, SITE NOT SPECIFIED Qualifiers: Urinary tract infection type: site unspecified Hematuria presence: with hematuria Qualified Code(s): N39.0 - Urinary tract infection, site not specified; R31.9 - Hematuria, unspecified Assessment/Plan IMP: Fever, malaise recent UTI and Anemia with Presyncope in this setting. DM HTN Abnl ECst degree AV block Mild to moderate MR REC: 1. Work up fever as per PMD: cultures pending--> negative to date 2. Tele thus far w/ occasional episodes Wenkebach and rare PVCs do not explain her presyncopal episode. 3. Echo personally reviewed- MR is mild to moderate. Can be followed serially. Obtain old echo report if possible. 4. BP trend reveals average BP is above goal of 140/90, will titrate amlodipine to 5mg
[2018-02-27] MEDS: PANTOPRAZOLE 40 MG TABLET (FP) PO SCH (09:43)
[2018-02-27] MEDS: ENOXAPARIN NA (PORCINE) 40 MG/0.4 ML DISP.SYRIN SQ SCH (09:43)
[2018-02-27] MEDS: amLODIPine BESYLATE 5 MG TABLET (FP) PO SCH (09:43)
[2018-02-27] MEDS: LISINOPRIL 20 MG TABLET (FP) PO SCH (09:43)
[2018-02-27] MEDS: VENLAFAXINE HCL 75 MG E.R. CAPSULES (FP) PO SCH (09:44)
--- NOTE | 2018-02-27 10:53 | PN ---
Progress Note (short form) - Note Progress Note: pt seen/ examined awake/ no distress chart reviewed afebrile all cultures -ve so far all f/u noted/appreciated Vital Signs Temp 98.0 F 02/27/18 08:36 Pulse 63 02/27/18 08:36 Resp 15 02/27/18 08:37 BP 156/79 02/27/18 08:36 Pulse Ox 98 02/27/18 08:37 Intake & Output 02/26/18 02/26/18 02/27/18 11:59 23:59 11:59 Intake Total 260 490 130 Balance 260 490 130 Weight 171 lb Intake: IV 10 20 10 S/L 10 20 10 IVPB 50 Oral 250 420 120 Other: Voiding Method Toilet Toilet Toilet # Unmeasured Voids Void 2 1 1 Height 5 ft 7 in Body Mass Index (BMI) 26.7 Active Medications Alprazolam (Xanax -) 0.25 mg PO TID PRN PRN Reason: ANXIETY Last Admin: 02/26/18 21:09 Dose: 0.25 mg Amlodipine Besylate (Norvasc -) 5 mg PO DAILY [facility] Last Admin: 02/27/18 09:43 Dose: 5 mg Atorvastatin Calcium (Lipitor -) 10 mg PO HS [facility] Last Admin: 02/26/18 21:07 Dose: 10 mg Enoxaparin Sodium (Lovenox -) 40 mg SQ DAILY [facility] Last Admin: 02/27/18 09:43 Dose: 40 mg Gemfibrozil (Lopid -) 600 mg PO BIDAC [facility] Last Admin: 02/27/18 06:36 Dose: 600 mg Insulin Aspart (Novolog Vial Sliding Scale -) 1 vial SQ TIDAC [facility]; Protocol Last Admin: 02/27/18 06:36 Dose: 2 unit Lisinopril (Prinivil) 40 mg PO DAILY [facility] Last Admin: 02/27/18 09:43 Dose: 40 mg Magnesium Oxide (Mag-Ox -) 400 mg PO BID [facility] Metformin HCl (Glucophage -) 500 mg PO BID@0700,1630 [facility] Last Admin: 02/27/18 06:35 Dose: 500 mg Pantoprazole Sodium (Protonix -) 40 mg PO DAILY [facility] Last Admin: 02/27/18 09:43 Dose: 40 mg Sitagliptin Phosphate (Januvia -) 50 mg PO BID@0700,1630 [facility] Last Admin: 02/27/18 06:36 Dose: 50 mg Trazodone HCl (Desyrel -) 100 mg PO HS [facility] Last Admin: 02/26/18 21:08 Dose: 100 mg Venlafaxine HCl (Effexor Xr -) 150 mg PO DAILY [facility] Last Admin: 02/27/18 09:44 Dose: 150 mg CBC, BMP 02/27/18 05:30 02/27/18 06:00 Microbiology 02/24/18 20:30 Blood Culture - Preliminary Blood - Peripheral Venous NO GROWTH OBTAINED AFTER 48 HOURS, INCUBATION TO CONTINUE FOR 3 DAYS. 02/24/18 20:30 Blood Culture - Preliminary Blood - Peripheral Venous NO GROWTH OBTAINED AFTER 48 HOURS, INCUBATION TO CONTINUE FOR 3 DAYS. 02/24/18 18:51 Urine Culture - Final Urine - Urine Clean Catch NO GROWTH OBTAINED Physical Exam S1 S2 RRR Lungs clear Abd- soft, NT No edema neuro - alert/ awake. non focal PLAN clinically stable pt subjectively feels tired -- feels not good enough to go home today seems depressed but denies dont want to see psych/ off abx daily oob - chair monitor bp discussed with pt d/c planning-- Later today or tomorrow will follow discussed with nursing staff also Problem List - Problems (1) Acute febrile illness Code(s): R50.9 - FEVER, UNSPECIFIED (2) Diabetes mellitus Code(s): E11.9 - TYPE 2 DIABETES MELLITUS WITHOUT COMPLICATIONS Qualifiers: Diabetes mellitus type: type 2 Diabetes mellitus complication status: without complication (3) HTN (hypertension) Code(s): I10 - ESSENTIAL (PRIMARY) HYPERTENSION (4) Mitral regurgitation Code(s): I34.0 - NONRHEUMATIC MITRAL (VALVE) INSUFFICIENCY Qualifiers: Cardiac valve disease etiology: nonrheumatic Qualified Code(s): I34.0 - Nonrheumatic mitral (valve) insufficiency (5) Near syncope Code(s): R55 - SYNCOPE AND COLLAPSE
[2018-02-27] MEDS ORDERED: traZODone HCL 50 MG TABLET (FP) ONE (21:44)
[2018-02-27] MEDS: traZODone HCL 100 MG TABLET (FP) PO SCH (21:54)
[2018-02-27] MEDS: MAGNESIUM OXIDE 400 MG TABLET (FP) PO SCH (21:54)
[2018-02-27] MEDS ORDERED: ATORVASTATIN CA 10 MG TABLET (FP) PO SCH (22:30)
[2018-02-28] MEDS: metFORMIN HCL 500 MG TABLET (FP) PO SCH (06:44)
[2018-02-28] MEDS: sitaGLIPtin PHOSPHATE 50 MG TABLET PO SCH (06:45)
[2018-02-28] MEDS: GEMFIBROZIL 600 MG TABLET (FP) PO SCH (06:45)
[2018-02-28] MEDS: INSULIN SLIDING SCALE (NOVOLOG) 1 VIAL SQ SCH ×2 (06:49→12:25)
[2018-02-28] MEDS ORDERED: PT OWN MED DRAWER 7, Y5N ONE (09:38)
--- NOTE | 2018-02-28 09:38 | PN ---
Progress Note, Physician Chief Complaint: feeling well Denies chest pain or SOB Tele: NSR with first degree AV block and episodes of Wenkebach, rare PVC History of Present Illness: Blood pressure is well controlled. - Current Medication List Current Medications: Active Medications Alprazolam (Xanax -) 0.25 mg PO TID PRN PRN Reason: ANXIETY Last Admin: 02/26/18 21:09 Dose: 0.25 mg Amlodipine Besylate (Norvasc -) 5 mg PO DAILY [facility] Last Admin: 02/27/18 09:43 Dose: 5 mg Atorvastatin Calcium (Lipitor -) 10 mg PO HS [facility] Last Admin: 02/27/18 22:27 Dose: 10 mg Enoxaparin Sodium (Lovenox -) 40 mg SQ DAILY [facility] Last Admin: 02/27/18 09:43 Dose: 40 mg Gemfibrozil (Lopid -) 600 mg PO BIDAC [facility] Last Admin: 02/28/18 06:45 Dose: 600 mg Insulin Aspart (Novolog Vial Sliding Scale -) 1 vial SQ TIDAC [facility]; Protocol Last Admin: 02/28/18 06:49 Dose: 2 unit Lisinopril (Prinivil) 40 mg PO DAILY [facility] Last Admin: 02/27/18 09:43 Dose: 40 mg Magnesium Oxide (Mag-Ox -) 400 mg PO BID [facility] Last Admin: 02/27/18 21:54 Dose: 400 mg Metformin HCl (Glucophage -) 500 mg PO BID@0700,1630 [facility] Last Admin: 02/28/18 06:44 Dose: 500 mg Pantoprazole Sodium (Protonix -) 40 mg PO DAILY [facility] Last Admin: 02/27/18 09:43 Dose: 40 mg Sitagliptin Phosphate (Januvia -) 50 mg PO BID@0700,1630 [facility] Last Admin: 02/28/18 06:45 Dose: 50 mg Trazodone HCl (Desyrel -) 100 mg PO HS [facility] Last Admin: 02/27/18 21:54 Dose: 100 mg Venlafaxine HCl (Effexor Xr -) 150 mg PO DAILY [facility] Last Admin: 02/27/18 09:44 Dose: 150 mg - Objective Vital Signs: Vital Signs Temperature 97.9 F 02/28/18 06:00 Pulse Rate 60 02/28/18 06:00 Respiratory Rate 20 02/28/18 06:00 Blood Pressure 134/76 02/28/18 06:00 O2 Sat by Pulse Oximetry (%) 96 02/27/18 21:00 Constitutional: Yes: No Distress Eyes: Yes: Conjunctiva Clear Cardiovascular: Yes: Regular Rate and Rhythm Respiratory: Yes: CTA Bilaterally (no rales or wheezing) Gastrointestinal: Yes: Soft Edema: No Neurological: Yes: Alert, Oriented ...Motor Strength: WNL Labs: CBC, BMP 02/27/18 05:30 02/27/18 06:00 - ....Imaging EKG: Image Reviewed Problem List - Problems (1) Near syncope Code(s): R55 - SYNCOPE AND COLLAPSE (2) Abnormal ECG Code(s): R94.31 - ABNORMAL ELECTROCARDIOGRAM [ECG] [EKG] (3) Mitral regurgitation Code(s): I34.0 - NONRHEUMATIC MITRAL (VALVE) INSUFFICIENCY Qualifiers: Cardiac valve disease etiology: nonrheumatic Qualified Code(s): I34.0 - Nonrheumatic mitral (valve) insufficiency (4) Acute febrile illness Code(s): R50.9 - FEVER, UNSPECIFIED (5) Anemia Code(s): D64.9 - ANEMIA, UNSPECIFIED Qualifiers: Anemia type: unspecified type Qualified Code(s): D64.9 - Anemia, unspecified (6) Diabetes mellitus Code(s): E11.9 - TYPE 2 DIABETES MELLITUS WITHOUT COMPLICATIONS Qualifiers: Diabetes mellitus type: type 2 Diabetes mellitus complication status: without complication (7) UTI (urinary tract infection) Code(s): N39.0 - URINARY TRACT INFECTION, SITE NOT SPECIFIED Qualifiers: Urinary tract infection type: site unspecified Hematuria presence: with hematuria Qualified Code(s): N39.0 - Urinary tract infection, site not specified; R31.9 - Hematuria, unspecified Assessment/Plan IMP: Fever, malaise recent UTI and Anemia with Presyncope in this setting. DM HTN Abnl ECst degree AV block Mild to moderate MR REC: 1. Work up fever as per PMD: cultures pending--> negative to date 2. Tele thus far w/ occasional episodes Wenkebach and rare PVCs do not explain her presyncopal episode. 3. Echo personally reviewed- MR is mild to moderate. Can be followed serially. Obtain old echo report if possible. 4. BP trend now normal after addition Amlodipine 5. Can d/c tele.
[2018-02-28] MEDS: PANTOPRAZOLE 40 MG TABLET (FP) PO SCH (09:40)
[2018-02-28] MEDS: VENLAFAXINE HCL 75 MG E.R. CAPSULES (FP) PO SCH (09:40)
[2018-02-28] MEDS: ENOXAPARIN NA (PORCINE) 40 MG/0.4 ML DISP.SYRIN SQ SCH (09:40)
[2018-02-28] MEDS: LISINOPRIL 20 MG TABLET (FP) PO SCH (09:40)
[2018-02-28] MEDS: MAGNESIUM OXIDE 400 MG TABLET (FP) PO SCH (09:40)
[2018-02-28] MEDS: amLODIPine BESYLATE 5 MG TABLET (FP) PO SCH (09:40)
[2018-02-28 10:03] VITALS: BP 136/68; PULSE 62; TEMP 97.8
--- NOTE | 2018-02-28 13:15 | DS ---
Physical Examination Vital Signs: Vital Signs Temperature 97.8 F 02/28/18 10:00 Pulse Rate 62 02/28/18 10:00 Respiratory Rate 18 02/28/18 10:00 Blood Pressure 136/68 02/28/18 10:00 O2 Sat by Pulse Oximetry (%) 96 02/28/18 09:00 Findings/Remarks: feels well no complains mood stable mild anxiety denies cp/ sob. no abd pain Constitutional: Yes: No Distress Eyes: Yes: Conjunctiva Clear Neck: Yes: Supple Cardiovascular: Yes: Regular Rate and Rhythm Respiratory: Yes: CTA Bilaterally Gastrointestinal: Yes: Soft Edema: No Neurological: Yes: WNL, Alert Labs: CBC, BMP 02/27/18 05:30 02/27/18 06:00 Discharge Summary Reason For Visit: URINARY TRACT INFECTION PRE SYNCOPE Current Active Problems Abnormal ECG (Acute) Acute febrile illness (Acute) Anemia (Acute) Diabetes mellitus (Acute) HLD (hyperlipidemia) (Acute) HTN (hypertension) (Acute) Malaise (Acute) Mitral regurgitation (Acute) Near syncope (Acute) UTI (urinary tract infection) (Acute) Hospital Course: admitted for pre- syncope monitored on tele cardiology followed cultures -ve echo done - reviewed stable for d/c f/u in office one week pt in agreement discussed in detail discussed with nursing staff also meds reconcilled Condition: Stable - Instructions Referrals: Arvind Farooq MD [Primary Care Provider] - Disposition: HOME - Home Medications Comprehensive Discharge Medication List: Ambulatory Orders Lisinopril [Prinivil] 40 mg PO DAILY 05/30/12 Lovastatin 20 mg PO DAILY 05/30/12 Omeprazole [Prilosec (RX)] 40 mg PO DAILY 05/30/12 traZODone HCL [Desyrel -] 100 mg PO HS 05/30/12 Alprazolam [Xanax] 0.25 mg PO TID 02/24/18 Gemfibrozil 600 mg PO BID 02/24/18 Venlafaxine HCl ER [Effexor Xr -] 150 mg PO DAILY 02/24/18 Sitagliptin Phos/Metformin HCl [Janumet 50-500 mg Tablet] 1 each PO BID Amlodipine Besylate [Norvasc -] 5 mg PO DAILY 30 Days #30 tablet 02/28/18 Magnesium Oxide [Mag-Ox -] 400 mg PO BID #60 tablet 02/28/18
== END 2018-02-28 14:29 | disposition home or self-care (01) | DRG 463 ==
LOC: JER 18:05 → JERBED 21:13 → J4W 02-25 17:55
PROVIDERS: ADMIT Internal Medicine; ATTEND Internal Medicine
DX: N39.0 Urinary tract infection, site not specified (principal); R55 Syncope and collapse; E11.9 Type 2 diabetes mellitus without complications; E78.5 Hyperlipidemia, unspecified; I10 Essential (primary) hypertension; R53.81 Other malaise; I34.0 Nonrheumatic mitral (valve) insufficiency; K21.9 Gastro-esophageal reflux disease without esophagitis; R94.31 Abnormal electrocardiogram [ECG] [EKG]; R50.9 Fever, unspecified; I44.0 Atrioventricular block, first degree; Z87.891 Personal history of nicotine dependence; D64.9 Anemia, unspecified
CPT/HCPCS: 36415; 71046-TC-FY; 80048; 80053; 80061; 81003; 81015; 82009; 82272; 82550; 82962; 83605; 83721; 83735; 84100; 84439; 84443; 84484; 85025; 85027; 86618; 87040; 87086; 87798; 87804; 93005; 93010; 93306-TC; 99285-25; J0131; J7030

== ENCOUNTER 2018-11-01 15:10 | Emergency (ER) | payer OTHER ==
[2018-11-01 15:19] VITALS: TEMP 98.1; BMI 26.6
[2018-11-01 15:53] LABS: BASO % 0.9 % (0-2.0); EOS % 2.2 % (0-4.5); HEMATOCRIT 32.8 % (32.4-45.2); HEMOGLOBIN 11.3 GM/dl (10.7-15.3); LYMPH % 23.8 % (8-40); MCH 31.1 pg (25.7-33.7); MCHC 34.5 g/dl (32.0-36.0); MEAN CELL VOLUME 90.2 fl (80-96); MEAN PLT VOLUME 8.1 fl (7.5-11.1); MONO % 9.8 % (3.8-10.2); NEUT % 63.3 % (42.8-82.8); PLATELET COUNT 267 K/MM3 (134-434); RBC 3.63 M/mm3 (3.60-5.2); RDW 12.2 % (11.6-15.6); WHITE BLOOD COUNT 7.6 K/mm3 (4.0-10.8)
[2018-11-01 16:02] LABS: ALBUMIN 3.7 g/dl (3.4-5.0); BILIRUBIN,TOTAL 0.4 mg/dl (0.2-1); CALCIUM 9.1 mg/dl (8.5-10); CREATININE 0.8 mg/dl (0.55-1.3); POTASSIUM 4.3 mmol/L (3.5-5.1); TOT PROT 6.7 g/dl (6.4-8.2)
[2018-11-01 17:01] VITALS: PULSE 64
--- NOTE | 2018-11-01 17:06 | PDOC ---
Documentation entered by Zana Bryson SCRIBE, acting as scribe for Jefferson Hart MD. Jefferson Hart MD: This documentation has been prepared by the Adelaide varner Andrys, SCRIBE, under my direction and personally reviewed by me in its entirety. I confirm that the documentation accurately reflects all work, treatment, procedures, and medical decision making performed by me. History of Present Illness - General Chief Complaint: Chest Pain Stated Complaint: chest heaviness,cold and chills Time Seen by Provider: 11/01/18 15:17 History Source: Patient Exam Limitations: No Limitations - History of Present Illness Initial Comments: 11/01/18 15:27 The patient is a 58 year old female with a significant past medical history of HTN, HLD, and DM who presents to the ED 3 weeks of chest heaviness. Patient reports 3 weeks of mid sternal chest heaviness. She states her symptoms progressively worsened yesterday and she states she now has chest pain that is worsened on deep inspiration. Patient also reports a non-productive cough for 3 weeks and chills since yesterday. Patient states she took dayquil with no relief of present symptoms. Denies extremity pain. Denies back pain. Denies shortness of breath. Denies any other symptoms. Social hx: Patient recently traveled to [place]. Denies any long distance traveling. [facility]: Huan Past History - Past Medical History Allergies/Adverse Reactions: Allergies Allergy/AdvReac Type Severity Reaction Status Date / Time Sulfa (Sulfonamide Allergy Verified 11/01/18 15:15 Antibiotics) Home Medications: Ambulatory Orders Lisinopril [Prinivil] 40 mg PO DAILY 05/30/12 Lovastatin 20 mg PO DAILY 05/30/12 Omeprazole [Prilosec (RX)] 40 mg PO DAILY 05/30/12 traZODone HCL [Desyrel -] 100 mg PO HS 05/30/12 Alprazolam [Xanax] 0.25 mg PO TID PRN 02/24/18 Gemfibrozil 600 mg PO BID 02/24/18 Venlafaxine HCl ER [Effexor Xr -] 150 mg PO DAILY 02/24/18 Sitagliptin Phos/Metformin HCl [Janumet 50-500 mg Tablet] 1 each PO BID Amlodipine Besylate [Norvasc -] 5 mg PO DAILY 30 Days #30 tablet 02/28/18 Magnesium Oxide [Mag-Ox -] 400 mg PO BID #60 tablet 02/28/18 Aspirin 81 mg PO DAILY 11/01/18 Azithromycin [Zithromax -] 250 mg PO UTDICT #6 tab 11/01/18 Anemia: Yes COPD: No Diabetes: Yes HTN: Yes Hypercholesterolemia: Yes - Surgical History Abdominal Surgery: (appendectomy) Appendectomy: Yes Gastric Stapling: No Neurologic Surgery: No - Immunization History Immunization Up to Date: No - Suicide/Smoking/Psychosocial Hx Smoking Status: Yes Smoking History: Former smoker Have you smoked in the past 12 months: No Number of Cigarettes Smoked Daily: 15 If you are a former smoker, when did you quit?: 6 years ago 'Breaking Loose' booklet given: 06/01/12 Hx Alcohol Use: Yes (occasional) Drug/Substance Use Hx: No Substance Use Type: None Hx Substance Use Treatment: No Review of Systems - Review of Systems Able to Perform ROS?: Yes Comments:: 11/01/18 15:28 GENERAL/CONSTITUTIONAL: + chills.. No weakness. HEAD, EYES, EARS, NOSE AND THROAT: No change in vision. No ear pain or discharge. No sore throat. CARDIOVASCULAR: + chest pain. No shortness of breath. RESPIRATORY: + cough. No wheezing, or hemoptysis. GASTROINTESTINAL: No nausea, vomiting, diarrhea or constipation. GENITOURINARY: No dysuria, frequency, or change in urination. MUSCULOSKELETAL: No joint or muscle swelling or pain. No neck or back pain. SKIN: No rash NEUROLOGIC: No headache, vertigo, loss of consciousness, or change in strength/ sensation. ENDOCRINE: No increased thirst. No abnormal weight change. HEMATOLOGIC/LYMPHATIC: No anemia, easy bleeding, or history of blood clots. ALLERGIC/IMMUNOLOGIC: No hives or skin allergy. All Other Systems: Reviewed and Negative *Physical Exam - Vital Signs Last Vital Signs Temp Pulse Resp BP Pulse Ox 98.1 F 72 18 157/80 100 11/01/18 15:15 11/01/18 15:15 11/01/18 15:15 11/01/18 15:15 11/01/18 15:15 - Physical Exam Comments: 11/01/18 15:28 GENERAL: Awake, alert, and fully oriented, in no acute distress HEAD: No signs of trauma EYES: PERRLA, EOMI, sclera anicteric, conjunctiva clear ENT: Auricles normal inspection, hearing grossly normal, nares patent, oropharynx clear without exudates. Moist mucosa NECK: Normal ROM, supple, no lymphadenopathy, JVD, or masses LUNGS: Breath sounds equal, clear to auscultation bilaterally. No wheezes, and no crackles HEART: + Reproducible anterior chest wall pain. Regular rate and rhythm, normal S1 and S2, no murmurs, rubs or gallops ABDOMEN: Soft, nontender, normoactive bowel sounds. No guarding, no rebound. No masses EXTREMITIES: Normal range of motion, no edema. No clubbing or cyanosis. No cords, erythema, or tenderness. No calf tenderness bilaterally. NEUROLOGICAL: Cranial nerves II through XII grossly intact. Normal speech, normal gait SKIN: Warm, Dry, normal turgor, no rashes or lesions noted. Heart Score/ECG Review - History History: Slightly suspicious - Electrocardiogram EKG: Normal - Age Age: 45-65 - Risk Factors Risk Factors Heart Score: Yes Hx Hypercholesterolemia, Yes Hx Hypertension, Yes Hx Diabetes Based on the list above the patient has:: 1-2 risk factors - Troponin Troponin: </= normal limit - Score Heart Score - Total: 2 #1 General ECG Interpretation: Sinus Rhythm, Normal Rate 11/01/18 15:33 ECG done at 15:29 with a heart rate of 62, normal sinus rhythm, first degree AV block, otherwise normal Reported by: Dr. Hart ED Treatment Course - LABORATORY CBC & Chemistry Diagram: 11/01/18 15:35 11/01/18 15:35 - ADDITIONAL ORDERS Additional order review: Laboratory Results 11/01/18 11/01/18 15:35 15:35 Sodium 140 Potassium 4.3 Chloride 110 H Carbon Dioxide 22 Anion Gap 8 BUN 24.0 H Creatinine 0.8 Est GFR (CKD-EPI)AfAm 95.52 Est GFR (CKD-EPI)NonAf 82.42 Random Glucose 150 H Calcium 9.1 Total Bilirubin 0.4 AST 17 ALT 18 Alkaline Phosphatase 61 Troponin I < 0.03 Total Protein 6.7 Albumin 3.7 11/01/18 15:35 RBC 3.63 MCV 90.2 MCHC 34.5 RDW 12.2 MPV 8.1 Neutrophils % 63.3 Lymphocytes % 23.8 Monocytes % 9.8 Eosinophils % 2.2 Basophils % 0.9 - RADIOLOGY Radiology Studies Ordered: Category Date Time Status CHEST X-RAY PORTABLE* [RAD] Stat Radiology 11/01/18 15:18 Taken 11/01/18 17:01 58 y/o female with chest pain for 3 weeks worse since yesterday. Reproducible chest pain, low risk for PE, VSS CXR NAD, no change from prior Will discharge with bronchitis and costochondritis Pt is in agreement with plan Follow up with [facility] as out patient If worsen return to ER *DC/Admit/Observation/Transfer Diagnosis at time of Disposition: Costochondritis, acute, Bronchitis, Atypical chest pain - Discharge Dispostion Disposition: HOME Condition at time of disposition: Improved Decision to Admit order: No - Referrals - Patient Instructions Printed Discharge Instructions: DI for Atypical Chest Pain Additional Instructions: Fluids, rest, Motrin Z-pack as directed Follow up with [facility] If worsen return to ER - Post Discharge Activity
[2018-11-01 17:15] VITALS: BP 158/70
--- NOTE | 2018-11-02 06:45 | EKG ---
Test Reason : Blood Pressure : / mmHG Vent. Rate : 062 BPM Atrial Rate : 062 BPM P-R Int : 322 ms QRS Dur : 096 ms QT Int : 432 ms P-R-T Axes : 046 -01 042 degrees QTc Int : 438 ms SINUS RHYTHM WITH 1ST DEGREE A-V BLOCK OTHERWISE NORMAL ECG WHEN COMPARED WITH ECG OF 24-FEB-2018 19:45, CRITERIA FOR SEPTAL INFARCT ARE NO LONGER PRESENT Confirmed by BRANDY SEYMOUR MD ([id number]) on 11/02/2018 6:45:00 AM Referred By: Confirmed By:BRANDY SEYMOUR MD
== END 2018-11-01 17:17 | disposition home or self-care (01) ==
LOC: FER 15:10
DX: M94.0 Chondrocostal junction syndrome [Tietze] (principal); J40 Bronchitis, not specified as acute or chronic; R07.89 Other chest pain; E78.00 Pure hypercholesterolemia, unspecified; I10 Essential (primary) hypertension; E11.9 Type 2 diabetes mellitus without complications
CPT/HCPCS: 36415; 71045-TC-FY; 80053; 84484; 85025; 93005; 99284-25

== ENCOUNTER 2018-11-17 19:39 | Emergency (ER) | payer OTHER ==
[2018-11-17 19:51] VITALS: BP 142/73; PULSE 104; TEMP 98.3; BMI 26.3
[2018-11-17] MEDS ORDERED: PHENAZOPYRIDINE HCL 100 MG TABLET (FP) PO ONE (20:37)
--- NOTE | 2018-11-17 20:44 | PDOC ---
Documentation entered by Toby Carter SCRIBE, acting as scribe for Osorio Montoya MD. Osorio Montoya MD: This documentation has been prepared by the Raul varner Xhesika, SCRIBE, under my direction and personally reviewed by me in its entirety. I confirm that the documentation accurately reflects all work, treatment, procedures, and medical decision making performed by me. History of Present Illness - General Chief Complaint: Urinary Problem Stated Complaint: URINARY SX, LEG PAINS, CHILLS Time Seen by Provider: 11/17/18 19:49 History Source: Patient Exam Limitations: No Limitations - History of Present Illness Initial Comments: 11/17/18 20:37 The patient is a 58 year old female, with a significant PMH of HTN, HLD, and DM who presents to the emergency department with urinary urgency and cloudy urine x 1 week. Patient states she endorses fatigue secondary to her symptoms. Patient states she had 2 prior UTI's. Patient denies fever, abdominal pain, back pain, or CVA tenderness. PAST SURGICAL HISTORY: b/l oophorectomy FAMILY HISTORY: no pertinent history SOCIAL HISTORY: Pt lives with family and is employed. MEDICATIONS: reviewed ALLERGIES: As per nursing notes 11/17/18 20:39 Assessment and plan: This is a 58-year-old female who comes in complaining of frequency and urgency on urination. Patient said she's also had cloudy urine times several days. Patient denies any fevers or chills back pain flank pain or any other complaints. They found. I gave her 40 Lasix IV she is to get we're working on a bed we have on the ventilator. She is totally stable she should be fine to stay [facility] [place] Patient does have history of UTI in the past. Patient's urine was positive for leukocytes and red cells and bacteria. Even Macrobid and Pyridium. Patient had prescription sent to her pharmacy to continue the Macrobid and Pyridium and patient was discharged home. Past History - Past Medical History Allergies/Adverse Reactions: Allergies Allergy/AdvReac Type Severity Reaction Status Date / Time Sulfa (Sulfonamide Allergy Verified 11/17/18 19:43 Antibiotics) Home Medications: Ambulatory Orders Lisinopril [Prinivil] 40 mg PO DAILY 05/30/12 Lovastatin 20 mg PO DAILY 05/30/12 Omeprazole [Prilosec (RX)] 40 mg PO DAILY 05/30/12 traZODone HCL [Desyrel -] 100 mg PO HS 05/30/12 Alprazolam [Xanax] 0.25 mg PO TID PRN 02/24/18 Gemfibrozil 600 mg PO BID 02/24/18 Venlafaxine HCl ER [Effexor Xr -] 150 mg PO DAILY 02/24/18 Sitagliptin Phos/Metformin HCl [Janumet 50-500 mg Tablet] 1 each PO BID Amlodipine Besylate [Norvasc -] 5 mg PO DAILY 30 Days #30 tablet 02/28/18 Magnesium Oxide [Mag-Ox -] 400 mg PO BID #60 tablet 02/28/18 Aspirin 81 mg PO DAILY 11/01/18 Nitrofurantoin Monohyd/M-Cryst [Macrobid -] 100 mg PO BID #14 capsule 11/17/18 Phenazopyridine HCl [Pyridium] 200 mg PO TID #6 tablet 11/17/18 Anemia: Yes COPD: No Diabetes: Yes HTN: Yes Hypercholesterolemia: Yes - Surgical History Abdominal Surgery: (appendectomy) Appendectomy: Yes Gastric Stapling: No Neurologic Surgery: No - Immunization History Immunization Up to Date: No - Suicide/Smoking/Psychosocial Hx Smoking Status: Yes Smoking History: Never smoked Have you smoked in the past 12 months: No Number of Cigarettes Smoked Daily: 15 If you are a former smoker, when did you quit?: 6 years ago Information on smoking cessation initiated: No 'Breaking Loose' booklet given: 06/01/12 Hx Alcohol Use: No Drug/Substance Use Hx: No Substance Use Type: None Hx Substance Use Treatment: No Review of Systems - Review of Systems Able to Perform ROS?: Yes Comments:: 11/17/18 20:38 General: No fevers or chills, no weakness, no weight loss HEENT: No change in vision. No sore throat,. No ear pain CardioVascular: No chest pain or shortness of breath Respiratory:No cough, or wheezing. Gastrointestinal: no nausea, vomiting, diarrhea or constipation, No rectal bleeding Genitourinary: No dysuria, hematuria. (+) urinary urgency and cloudy urine Musculoskeletal: No joint or muscle pain or swelling Neurologic: No headache, vertigo, dizziness or loss of consciousness Psychiatric: nor depression Skin: No rashes or easy bruising Endocrine: no increased thirst or abnormal weight change Allergic: no skin or latex allergy All other systems reviewed and normal *Physical Exam - Vital Signs Last Vital Signs Temp Pulse Resp BP Pulse Ox 98.3 F 104 H 16 142/73 98 11/17/18 19:43 11/17/18 19:43 11/17/18 19:43 11/17/18 19:43 11/17/18 19:43 - Physical Exam Comments: 11/17/18 20:38 GENERAL: The patient is awake, alert, and fully oriented, in no acute distress. HEAD: Normal with no signs of trauma. EYES: Pupils equal, round and reactive to light, extraocular movements intact, sclera anicteric, conjunctiva clear. EXTREMITIES: Normal range of motion, no edema. NEUROLOGICAL: Normal speech, normal gait. PSYCH: Normal mood, normal affect. SKIN: Warm, Dry, normal turgor, no rashes or lesions noted. ED Treatment Course - ADDITIONAL ORDERS Additional order review: Laboratory Results 11/17/18 19:55 Urine Color Yellow Urine Appearance Clear Urine pH 5.5 Urine Protein 1+ H Urine Glucose (UA) Negative Urine Ketones Negative Urine Blood 2+ H Urine Nitrite Negative Urine Bilirubin Negative Urine Urobilinogen 0.2 Ur Leukocyte Esterase 2+ Urine RBC 10-20 Urine WBC >100 Urine Bacteria Moderate *DC/Admit/Observation/Transfer Diagnosis at time of Disposition: UTI (urinary tract infection) Qualifiers: Urinary tract infection type: acute cystitis Hematuria presence: with hematuria Qualified Code(s): N30.01 - Acute cystitis with hematuria - Discharge Dispostion Disposition: HOME Condition at time of disposition: Stable Decision to Admit order: No - Prescriptions Prescriptions: Nitrofurantoin Monohyd/M-Cryst [Macrobid -] 100 mg PO BID #14 capsule Phenazopyridine HCl [Pyridium] 200 mg PO TID #6 tablet - Referrals Referrals: Arvind Farooq MD [Primary Care Provider] - - Patient Instructions Additional Instructions: Take Macrobid 1 tablet twice a day for the urinary tract infection. Take Pyridium one tablet 3 times a day for 2 days this is for the urgency. Return to the emergency department immediately with ANY new, persistent or worsening symptoms. Continue any medications as previously prescribed by your physician. You should follow up with your primary doctor as soon as possible regarding today's emergency department visit. . Please make sure your doctor reviews the results of your emergency evaluation. Thank you for coming to the Emergency Department today for your care. It was a pleasure to see you today. Please note that your evaluation is INCOMPLETE until you follow-up with your doctor. - Post Discharge Activity
[2018-11-17] MEDS ORDERED: NITROFURANTOIN MACROCRYSTAL 50 MG CAPSULE (FP) PO SCH (20:45)
[2018-11-17] MEDS ORDERED: PHENAZOPYRIDINE HCL 100 MG TABLET (FP) ONE (20:50)
[2018-11-17] MEDS ORDERED: NITROFURANTOIN MACROCRYSTAL 50 MG CAPSULE (FP) ONE (20:50)
== END 2018-11-17 20:55 | disposition home or self-care (01) ==
LOC: FER 19:39
DX: N30.01 Acute cystitis with hematuria (principal); Z87.891 Personal history of nicotine dependence; I10 Essential (primary) hypertension; E78.00 Pure hypercholesterolemia, unspecified; E11.9 Type 2 diabetes mellitus without complications
CPT/HCPCS: 81003; 81015; 87086; 87186; 99283-25

== ENCOUNTER 2018-11-19 04:16 | Inpatient (IN) | payer OTHER | END 2018-11-21 12:55 | disposition home or self-care (01) | LOC: FER 04:16 → FM/S 08:27 ==

== ENCOUNTER 2019-01-05 05:04 | Day surgery (SDC) | payer OTHER ==
[2019-01-01 16:19] VITALS: BMI 25.0
[~2019-01-05 05:04] MED LIST: ceFAZolin SODIUM 1 GM VIAL IVPB ONE
[2019-01-05] MEDS ORDERED: MIDAZOLAM HCL 2 MG/2 ML SINGLE DOSE VIAL ONE (07:28)
[2019-01-05] MEDS ORDERED: SUCCINYLCHOLINE CHLORIDE 200 MG/10 ML SYRINGE ONE (07:28)
[2019-01-05] MEDS ORDERED: PROPOFOL 20 ML ONE ×2 (07:28→08:28)
[2019-01-05] MEDS ORDERED: LIDOCAINE HCL/PF 2% SDV 5ML VIAL ONE (07:29)
[2019-01-05] MEDS ORDERED: KETOROLAC TROMETHAMINE 30 MG/1 ML VIAL ONE (07:29)
[2019-01-05] MEDS ORDERED: DEXAMETHASONE SOD PHOSPHATE 4 MG/1 ML VIAL ONE (07:29)
[2019-01-05] MEDS ORDERED: oxyCODONE HCL 5 MG TABLET PO PRN (08:28)
[2019-01-05] MEDS ORDERED: ELECTROLYTE-148 SOLN 1,000 ML IV SCH (08:30)
--- NOTE | 2019-01-05 08:30 | OP ---
Operative Note - Note: Operative Date: 01/05/19 Pre-Operative Diagnosis: rt kid stone Operation: ESWL Post-Operative Diagnosis: Same as Pre-op Surgeon: Jefferson Love Anesthesia: General Operative Report Dictated: Yes
--- NOTE | 2019-01-05 10:29 | OP ---
DATE OF OPERATION: 01/05/2019 PREOPERATIVE DIAGNOSIS: Right kidney stone. POSTOPERATIVE DIAGNOSIS: Right kidney stone. PROCEDURE: Extracorporeal shock-wave lithotripsy. SURGEON: Sheila Barger MD INDICATIONS: Patient is a 58-year-old female noted to have a 9-mm right mid pole kidney stone on ultrasound. After reviewing treatment options, patient elected to undergo ESWL. Understood the risks of bleeding, infection, inability to fragment stone, potential stone fragments getting stuck in the ureter as a consequence need for additional procedures and such. DESCRIPTION OF PROCEDURE: After informed consent was obtained, patient was taken to the OR, placed supine on the ESWL table. After active fluoroscopy and ultrasound, the stone was localized. She was then placed under general anesthesia. She was given 1 g of Ancef and then 2500 shocks were delivered under active fluoroscopy and ultrasound to determine that the stone was centered under treatment at all times. After 2500 shocks were delivered, patient was then awoken from anesthesia and transferred to the recovery room in stable condition. There appeared to be fragmentation on imaging studies. She was then taken to the recovery room in stable condition. There were no complications. There was no blood loss. SHEILA BARGER M.D. [id number]
[2019-01-05 13:50] VITALS: BP 160/73; PULSE 54; TEMP 97.8
== END 2019-01-05 12:15 | disposition home or self-care (01) ==
LOC: JASU-SURG 05:04
PROVIDERS: ATTEND Urology
PROC: 0TF3XZZ Fragmentation in Right Kidney Pelvis, External Approach (ICD-10-PCS; principal; 2019-01-05 08:00)
DX: N20.0 Calculus of kidney (principal); I10 Essential (primary) hypertension; E11.9 Type 2 diabetes mellitus without complications
CPT/HCPCS: 82962

== ENCOUNTER 2022-02-09 17:59 | Emergency (ER) | payer OTHER ==
[2022-02-09] MEDS ORDERED: LACTATED RINGERS SOLUTION 1000 ML INFUS.BAG IV ONE (18:20)
[2022-02-09] MEDS ORDERED: ACETAMINOPHEN 1000 MG/100 ML BAG IVPB ONE (18:20)
[2022-02-09] MEDS ORDERED: METOCLOPRAMIDE HCL INJECTION 10 MG/2 ML VIAL IVPUSH ONE (18:20)
[2022-02-09 18:25] VITALS: PULSE 82; RESP 18; TEMP 99; BMI 26.6
[2022-02-09] MEDS ORDERED: METOCLOPRAMIDE HCL INJECTION 10 MG/2 ML VIAL ONE (18:41)
[2022-02-09] MEDS ORDERED: ACETAMINOPHEN INJECTION 100 ML IVPB ONE (18:41)
[2022-02-09 19:06] VITALS: BP 135/70
[2022-02-09 19:15] LABS: EPITHELIAL CELLS FEW /hpf
[2022-02-09] MEDS ORDERED: CEFTRIAXONE 1 GM in DEXTROSE 5%-WATER - 50 ML IVPB ONE (19:52)
[2022-02-09] MEDS ORDERED: cefTRIAXone SODIUM 1 GM VIAL ONE (19:56)
[2022-02-09 20:24] LABS: HEMATOCRIT 32.1 % (32.4-45.2); HEMOGLOBIN 11.1 G/dL (10.7-15.3); MCH 29.4 pg (25.7-33.7); MCHC 34.4 g/dl (32.0-36.0); MEAN CELL VOLUME 85.3 fl (80-96); MEAN PLT VOLUME 7.8 fl (7.5-11.1); PLATELET COUNT 360.5 10^3/uL (134-434); RBC 3.76 10^6/uL (3.60-5.2); RDW 14.2 % (11.6-15.6); WHITE BLOOD COUNT 10.8 10^3/uL (4.0-10.8)
[2022-02-09 20:33] LABS: ALBUMIN 2.8 g/dl (3.4-5.0); BILIRUBIN,TOTAL 0.6 mg/dl (0.2-1); CALCIUM 8.9 mg/dl (8.5-10); CREATININE 0.8 mg/dl (0.55-1.3); TOT PROT 6.6 g/dl (6.4-8.2)
[2022-02-09] MEDS ORDERED: SODIUM CHLORIDE 0.9% 500 ML INFUS.BAG IV ONE (20:44)
[2022-02-09 21:00] LABS: TOXIC GRANULATION OCCASIONAL
== END 2022-02-09 22:11 | disposition home or self-care (01) ==
LOC: FER 17:59
PROC: 3E0333Z Introduction of Anti-inflammatory into Peripheral Vein, Percutaneous Approach (ICD-10-PCS; principal; 2022-02-09)
PROC: 3E03329 Introduction of Other Anti-infective into Peripheral Vein, Percutaneous Approach (ICD-10-PCS; 2022-02-09)
PROC: 3E033GC Introduction of Other Therapeutic Substance into Peripheral Vein, Percutaneous Approach (ICD-10-PCS; 2022-02-09)
DX: R35.0 Frequency of micturition (principal)
CPT/HCPCS: 0241U-QW; 36415; 80053; 81003; 81015; 85025; 87086; 87186; 93005; 96374; 96375; 99284-25